=== PATIENT | female | born 1990 | race Caucasian/White ===

== ENCOUNTER 2020-09-03 09:53 | Outpatient (REF) | payer OTHER, SELFPAY | END 2020-09-03 09:54 | disposition home or self-care (01) | LOC: HO.LAB 09:53 | PROVIDERS: PCP Pediatrics; Visit Provider Internal Medicine | DX: Z20.828 Contact with and (suspected) exposure to other viral communicable diseases (principal) | CPT/HCPCS: 87635 ==

== ENCOUNTER 2022-09-30 17:25 | Inpatient (IN) | payer OTHER, SELFPAY ==
--- NOTE | ~2022-09-30 | CT_ITS ---
EXAMINATION: CT ABDOMEN AND PELVIS WITH CONTRAST CLINICAL INFORMATION: Right lower quadrant pain. COMPARISON: None TECHNIQUE: Multidetector volumetric images were obtained from the superior aspect of the liver through the pubic symphysis following administration 91 mL of Omnipaque 350 intravenous contrast. Sagittal and coronal reformatted images were obtained on the technologist's workstation. Oral contrast: No This CT examination was performed using dose optimization techniques as appropriate, variously including the following: *Automated exposure control *Adjustment of mA and/or kV according to patient size (this includes techniques or standardized protocols for targeted exams where dose is matched to indication/reason for exam; i.e. extremities or head) *Use of iterative reconstruction technique DLP: 713 mGy-cm FINDINGS: LUNG BASES: The visualized lung bases are unremarkable. LIVER, GALLBLADDER, AND BILIARY TREE: The liver is normal in size, shape, and attenuation. No focal hepatic lesion or biliary ductal dilatation is present. The gallbladder is unremarkable with no evidence of radiopaque gallstones, gallbladder wall thickening, or obvious pericholecystic inflammatory changes. PANCREAS: Unremarkable. SPLEEN: Unremarkable. ADRENAL GLANDS: Unremarkable. KIDNEYS AND URETERS: The kidneys are normal in size, shape, and attenuation. No hydronephrosis, hydroureter, or calculi seen. No perinephric stranding. BLADDER: Unremarkable. GASTROINTESTINAL TRACT: The appendix is dilated measuring up to 1 cm in diameter and demonstrates wall thickening, periappendiceal fat stranding and periappendiceal free fluid. No organized drainable collection or abscess. No pneumoperitoneum. The stomach and the small bowel are nondilated. No pericolonic inflammatory changes nor evidence of bowel obstruction. ABDOMINAL WALL: No significant hernia is appreciated. LYMPH NODES: Prominent right lower quadrant mesenteric lymph nodes, likely reactive. VASCULAR: Unremarkable. PELVIC VISCERA: Unremarkable. OSSEOUS STRUCTURES: No acute or aggressive appearing osseous abnormalities. Bilateral L5 pars defects are noted. CT/CT abdomen pelvis w IV con IMPRESSION: Dilated appendix with wall thickening and surrounding inflammatory changes most consistent with acute appendicitis.
[2022-09-30 17:38] VITALS: BP 158/92; PULSE 98; O2SAT 99
[2022-09-30 19:15] VITALS: BP 150/83; PULSE 94; RESP 18; TEMP 37.2; O2SAT 98; BMI 34.0
--- NOTE | 2022-09-30 19:20 | ED.ABDPAIN ---
HPI - Abdominal Pain General Chief Complaint: Abdominal Pain Stated Complaint: abd pain Time Seen by Provider: 09/30/22 21:04 Related Data Allergies Allergy/AdvReac Type Severity Reaction Status Date / Time amoxicillin Allergy Intermediate Rash Verified 09/30/22 19:19 Physical Exam ED Vital Signs: Vital Signs - 24 hr 09/30/22 19:15 09/30/22 20:53 09/30/22 21:24 Temperature 99.0 F 98.0 F 97.7 F Pulse Rate 94 85 87 Respiratory Rate 18 18 18 Blood Pressure 150/83 H 142/79 H 144/84 H Pulse Oximetry 98 100 98 Oxygen Delivery Method Room Air Room Air Room Air BMI result Body Mass Index 34.0 Course Reevaluation(s) Reevaluation #1: Right-sided abdominal pain since 10:00, with nausea and vomiting, unable to tolerate p.o. intake because of abdominal pain and vomiting, no fever or chills. Labs/UA/abdominal CT was ordered from triage. Time: 19:20
[2022-09-30 20:53] VITALS: BP 142/79; PULSE 85; RESP 18; TEMP 36.7; O2SAT 100
--- NOTE | 2022-09-30 21:07 | ED.ABDPAIN ---
HPI - Abdominal Pain General Chief Complaint: Abdominal Pain Stated Complaint: abd pain Time Seen by Provider: 09/30/22 21:04 Source: patient Mode of arrival: ambulatory Limitations: no limitations History of Present Illness HPI narrative: Patient no significant abdominal complaints in the past noticed sudden onset of pain a right-sided since 10:00 pain is diffuse in the right side both in the lower and upper quadrant with nausea and vomiting got worse when she was ambulating vomited several times never had similar pain in the past. Patient had a questionable blood clot in the lungs but was not given any medication except for 2 days of blood thinner at [facility] and discontinued likely not the PE. No fever no chills no urinary complaints no history of kidney stone or gallstone Related Data Allergies Allergy/AdvReac Type Severity Reaction Status Date / Time amoxicillin Allergy Intermediate Rash Verified 09/30/22 19:19 Review of Systems Review of Systems Yes all other systems are reviewed and are negative [facility] Social History Social History Advance Directives: No Advance Directives Information Provided: No Physical Exam ED Vital Signs: Vital Signs - 24 hr 09/30/22 19:15 09/30/22 20:53 09/30/22 21:24 Temperature 99.0 F 98.0 F 97.7 F Pulse Rate 94 85 87 Respiratory Rate 18 18 18 Blood Pressure 150/83 H 142/79 H 144/84 H Pulse Oximetry 98 100 98 Oxygen Delivery Method Room Air Room Air Room Air 09/30/22 21:59 09/30/22 22:56 Temperature 97.7 F Pulse Rate 94 Respiratory Rate 16 16 Blood Pressure 134/54 L Pulse Oximetry 98 Oxygen Delivery Method Room Air BMI result Body Mass Index 34.0 Appearance: Alert. Oriented X3. Moderate distress. Eyes: No pallor/ icterus ENT: Pharynx normal. Oral Mucosa moist Neck: Normal inspection. Neck supple. CVS: Normal heart rate and rhythm. Pulses normal. Respiratory: No respiratory distress. Equal air entry bilateral, no wheezing/rales/rhonchi Abdomen: Soft , +++ tenderness right lower quadrant, guarding ++with no rebound tenderness, Bowel sounds are present, no mass palpable, no CVA tenderness Skin: Skin warm and dry. Normal skin color. Normal skin turgor. Extremities: No lower extremity edema. No calf tenderness Neuro: Oriented X 3. No motor deficit. Medications Administered Generic Name Dose Route Start Last Admin Trade Name Marge PRN Reason Stop Dose Admin Levofloxacin 500 mg in 100 mls @ 100 mls/hr 09/30/22 22:55 09/30/22 23:31 Levaquin IV 09/30/22 23:54 100 mls/hr ONCE ONE Administration Discontinued Medications Generic Name Dose Route Start Last Admin Trade Name Marge PRN Reason Stop Dose Admin Sodium Chloride 1,000 mls @ 999 mls/hr 09/30/22 21:17 09/30/22 22:00 Ns IV 09/30/22 22:17 999 mls/hr .Q1H1M ONE Administration Iohexol 100 ml 09/30/22 22:26 09/30/22 22:27 Iohexol 350 Mg/Ml 100 Ml Infus..Btl IV 09/30/22 22:27 91 ml ONCE ONE Administration Morphine Sulfate 4 mg 09/30/22 21:17 09/30/22 21:59 Morphine Sulfate 4 Mg/Ml Cartridge IVPUSH 09/30/22 21:18 4 mg ONCE ONE Administration Protocol Ondansetron HCl 4 mg 09/30/22 21:17 09/30/22 22:00 Ondansetron Hcl 4 Mg/2 Ml Vial IVPUSH 09/30/22 21:18 4 mg ONCE ONE Administration MDM - Abdominal Pain MDM Narrative Medical decision making narrative: Patient with right sided pain more in RLQ possibly appendicitis possible she might have a gallstone also Patient CT scan shows 1 cm dilated appendix with surrounding inflammation. Will give antibiotic Levaquin and Flagyl case discussed with Dr. Iverson surgeon will do the surgery early in the morning for acute appendicitis Lab Data Attestation: I reviewed the patient's lab results. Result diagrams: 09/30/22 21:30 09/30/22 21:30 Labs: Lab Results 09/30/22 09/30/22 09/30/22 Range/Units 21:30 21:30 21:30 WBC 17.0 H (4.8-10.8) X10*3/uL RBC 4.47 (4.20-5.50) X10*6/uL Hgb 13.6 (12.0-16.0) g/dl Hct 40.7 (37.0-47.0) % MCV 91.1 (80.0-98.0) fL MCH 30.4 (27.0-33.0) pg MCHC 33.4 (31.0-35.0) g/dl RDW 12.6 (11.0-16.0) % Plt Count 301 (160-400) X10*3/uL MPV 9.8 (9.4-12.3) fL Immature Gran % (Auto) 0.4 (0.0-0.4) % Neut % (Auto) 88.8 H (45-73) % Lymph % (Auto) 6.4 L (20-40) % [place] % (Auto) 4.2 (2-11) % Eos % (Auto) 0.0 (0-4) % Baso % (Auto) 0.2 (0-2) % Lymph # (Auto) 1.1 L (1.2-4.9) X10*3/uL [place] # (Auto) 0.7 (0.1-1.2) X10*3/uL Eos # (Auto) 0.0 (0.0-0.4) X10*3/uL Baso # (Auto) 0.0 (0.0-0.2) X10*3/uL Abs Immat Gran (auto) 0.06 H (0.00-0.03) X10*3/uL Absolute Neuts (auto) 15.1 H (2.0-8.3) x10*3/uL Absolute Nucleated RBC 0.000 (0.0-0.012) X10*3/uL Nucleated RBC % (auto) 0.0 (0.0-0.2) /100WBC Sodium 139 (135-145) mmol/L Potassium 5.0 (3.3-5.1) mmol/L Chloride 104 (96-108) mmol/L Carbon Dioxide 22 (22-29) mmol/L Anion Gap 18 (12-20) BUN 11 (9-16) mg/dL Creatinine 0.69 (0.5-1.4) mg/dL Estim Creat Clear Calc 111.2 Estimated GFR > 60 Random Glucose 121 H (60-115) mg/dL Calcium 9.4 (8.4-10.2) mg/dL Total Bilirubin 0.4 (0.0-1.0) mg/dL Direct Bilirubin 0.2 (0.0-0.5) mg/dL AST 38 H (5-31) U/L ALT 35 H (0-31) U/L Alkaline Phosphatase 61 (39-117) U/L Total Protein 7.5 (6.5-8.0) g/dL Albumin 4.6 (3.5-5.0) g/dL Lipase 11 (8-78) U/L Urine Color Yellow Urine Appearance Cloudy Urine pH 7.5 (5.0-9.0) Ur Specific [place] 1.025 (1.005-1.025) Urine Protein Trace (Neg-Trace) mg/dL Urine Glucose (UA) Negative (Negative) mg/dL Urine Ketones 40 (Negative) mg/dL Urine Blood Negative (Negative) Urine Nitrite Negative (Negative) Ur Leukocyte Esterase Negative (Negative) Urine Test (NEGATIVE) COVID-19 (LUCERO) (Negative) COVID-19 Clin Com 09/30/22 09/30/22 Range/Units 21:30 23:05 WBC (4.8-10.8) X10*3/uL RBC (4.20-5.50) X10*6/uL Hgb (12.0-16.0) g/dl Hct (37.0-47.0) % MCV (80.0-98.0) fL MCH (27.0-33.0) pg MCHC (31.0-35.0) g/dl RDW (11.0-16.0) % Plt Count (160-400) X10*3/uL MPV (9.4-12.3) fL Immature Gran % (Auto) (0.0-0.4) % Neut % (Auto) (45-73) % Lymph % (Auto) (20-40) % [place] % (Auto) (2-11) % Eos % (Auto) (0-4) % Baso % (Auto) (0-2) % Lymph # (Auto) (1.2-4.9) X10*3/uL [place] # (Auto) (0.1-1.2) X10*3/uL Eos # (Auto) (0.0-0.4) X10*3/uL Baso # (Auto) (0.0-0.2) X10*3/uL Abs Immat Gran (auto) (0.00-0.03) X10*3/uL Absolute Neuts (auto) (2.0-8.3) x10*3/uL Absolute Nucleated RBC (0.0-0.012) X10*3/uL Nucleated RBC % (auto) (0.0-0.2) /100WBC Sodium (135-145) mmol/L Potassium (3.3-5.1) mmol/L Chloride (96-108) mmol/L Carbon Dioxide (22-29) mmol/L Anion Gap (12-20) BUN (9-16) mg/dL Creatinine (0.5-1.4) mg/dL Estim Creat Clear Calc Estimated GFR Random Glucose (60-115) mg/dL Calcium (8.4-10.2) mg/dL Total Bilirubin (0.0-1.0) mg/dL Direct Bilirubin (0.0-0.5) mg/dL AST (5-31) U/L ALT (0-31) U/L Alkaline Phosphatase (39-117) U/L Total Protein (6.5-8.0) g/dL Albumin (3.5-5.0) g/dL Lipase (8-78) U/L Urine Color Urine Appearance Urine pH (5.0-9.0) Ur Specific [place] (1.005-1.025) Urine Protein (Neg-Trace) mg/dL Urine Glucose (UA) (Negative) mg/dL Urine Ketones (Negative) mg/dL Urine Blood (Negative) Urine Nitrite (Negative) Ur Leukocyte Esterase (Negative) Urine Test NEGATIVE (NEGATIVE) COVID-19 (LUCERO) Negative (Negative) COVID-19 Clin Com See Note Discharge Plan Discharge Clinical Impression: Acute appendicitis Patient Disposition: Admitted As Inpatient
[2022-09-30 21:24] VITALS: BP 144/84; PULSE 87; RESP 18; TEMP 36.5; O2SAT 98
--- NOTE | 2022-09-30 21:33 | PC.NURSE ---
THIS PCT ASSUMED CARE OF PT AT THIS TIME ,VITALS SIGN TAKEN ,BLOOD DRAWN AND URINE SAMPLE COLLECT AND SEND TO THE LAB,PT AT BEDSIDE ,CALL TORRES IN PLACE .
[2022-09-30 21:35] LABS: MANUAL DIFF FLAG NO
[2022-09-30 21:37] LABS: Basophils Percent Auto 0.2 % (0-2); Hematocrit 40.7 % (37.0-47.0); Hemoglobin 13.6 g/dl (12.0-16.0); Imm Gran Abs Auto 0.06 X10*3/uL (0.00-0.03); Imm Gran Pct Auto 0.4 % (0.0-0.4); Lymphocytes Absolute Auto 1.1 X10*3/uL (1.2-4.9); Lymphocytes Percent Auto 6.4 % (20-40); Mean Corpuscular HGB Conc 33.4 g/dl (31.0-35.0); Mean Corpuscular Hemoglobin 30.4 pg (27.0-33.0); Mean Corpuscular Volume 91.1 fL (80.0-98.0); Mean Platelet Volume 9.8 fL (9.4-12.3); Monocytes Absolute Auto 0.7 X10*3/uL (0.1-1.2); Monocytes Percent Auto 4.2 % (2-11); Neutrophils Absolute Auto 15.1 x10*3/uL (2.0-8.3); Neutrophils Percent Auto 88.8 % (45-73); Platelet Count 301 X10*3/uL (160-400); Red Blood Count 4.47 X10*6/uL (4.20-5.50); Red Cell Distribution Width 12.6 % (11.0-16.0)
[2022-09-30 21:39] LABS: Appearance Urine Cloudy; Color Urine Yellow; Glucose Urine UA Negative (Negative); Leukocyte Esterase Urine Negative (Negative); Nitrite Urine Negative (Negative); PH 7.5 (5.0-9.0); Specific Gravity - Urine 1.025 (1.005-1.025); Urine Blood Negative (Negative); Urine Ketones 40 mg/dL (Negative); Urine Protein Trace mg/dL (Neg-Trace)
[2022-09-30 21:42] LABS: UPreg QC Valid YES; Urine Pregnancy NEGATIVE (NEGATIVE)
[2022-09-30 21:57] LABS: Alanine Aminotransferase 35 U/L (0-31); Albumin Level 4.6 g/dL (3.5-5.0); Alkaline Phosphatase 61 U/L (39-117); Anion Gap 18 (12-20); Aspartate Amino Transferase 38 U/L (5-31); Bilirubin Direct 0.2 mg/dL (0.0-0.5); Bilirubin Total 0.4 mg/dL (0.0-1.0); Blood Urea Nitrogen 11 mg/dL (9-16); Calcium 9.4 mg/dL (8.4-10.2); Carbon Dioxide 22 mmol/L (22-29); Chloride 104 mmol/L (96-108); Creatinine Clr Calc Pharmacy 111.2; Estimated Glomerular Filt Rate > 60; Glucose Random 121 mg/dL (60-115); Lipase 11 U/L (8-78); Sodium 139 mmol/L (135-145); Total Protein 7.5 g/dL (6.5-8.0)
[2022-09-30 21:59] VITALS: RESP 16
[2022-09-30] MEDS: Morphine Sulfate 4 MG/ML CARTRIDGE IVPUSH (21:59)
[2022-09-30] MEDS: ondansetron HCL 4 MG/2 ML VIAL IVPUSH (22:00)
[2022-09-30] MEDS: 0.9 % Sodium Chloride 1,000 ML 999 ML IV (22:00)
[2022-09-30] MEDS: iohexoL 350 MG/ML 100 ML INFUS..BTL IV (22:27)
[2022-09-30 22:56] VITALS: BP 134/54; PULSE 94; RESP 16; TEMP 36.5; O2SAT 98
[2022-09-30 23:28] LABS: COVID-19 Test Negative (Negative)
[2022-09-30] MEDS: levoFLOXacin/D5W 500 MG/100 ML PIGGYBACK 100 MG IV (23:31)
[2022-10-01] VITALS (16 sets, daily range): BP systolic 119–165; BP diastolic 44–83; PULSE 72–90; RESP 12–18; TEMP 36.2–37.6; O2SAT 95–100
[2022-10-01] MEDS: Lactated Ringers 1,000 ML 100 ML IVCONT ×3 (00:44→17:05)
[2022-10-01] MEDS: metroNIDAZOLE/NS 500 MG/100 ML PIGGYBACK 100 MG IV ×2 (00:44→08:12)
[2022-10-01] MEDS: 0.9 % Sodium Chloride Flush 3 ML SYRINGE IVFLUSH ×2 (00:45→17:06)
[2022-10-01] MEDS: Morphine Sulfate 4 MG/ML CARTRIDGE 3 MG IVPUSH ×5 (01:07→20:39)
--- NOTE | 2022-10-01 07:46 | PHA.MEDREC ---
Pharmacy Consult ? Medication Reconciliation Pharmacy has completed the medication reconciliation. Patient only take melatonin as needed. Mayelin Cutler, AgathaD
--- NOTE | 2022-10-01 07:56 | PM.HPGS ---
History of Present Illness History of Present Illness Date of Service: 10/03/22 Chief complaint: Appendicitis Narrative: Madison Balbuena is a 32 year old female who came to the ER last night because of abdominal pain. She says this started around 10:00 o'clock in the morning yesterday. She had gone to the gym without any issues earlier that morning and started to have diffuse abdominal pain thereafter. She says this persisted throughout the day. She had multiple episodes of vomiting. She denies any diarrhea. She says she has had no similar episodes in the past. She says her pain this morning is similar in intensity and is not worse nor better. She says that the pain medication she has been receiving have helped a lot. She has had no vomiting overnight. She denies any fever or chills. Review of Systems Constitutional: Constitutional: Denies chills and Denies fever(s) Cardiovascular: Cardiovascular: Denies chest pain, Denies dyspnea and Denies dyspnea on exertion Respiratory: Respiratory: Denies cough, Denies dyspnea and Denies dyspnea on exertion Gastrointestinal: Gastrointestinal: Denies hematochezia and Denies change in bowel habits Genitourinary: Genitourinary: Denies hematuria Musculoskeletal: Musculoskeletal: Denies back pain and Denies limited range of motion Neurologic: Denies focal weakness and Denies convulsions Psychiatric: Psychiatric: Denies depression and Denies mood swings PMFSH Past Medical History Medical History History of COVID-19 Surgical History Surgical History (Updated 10/02/22 @ 07:49 by Christy England PA-C) History of esophagogastroduodenoscopy (EGD) Social History Social History Household Members: None Housing: Apartment Do you presently have visiting nurse or other home services: No Alcohol intake: former Patient Tobacco Use Status: Never used Tobacco Substance Use Type: Marijuana Advance Directives Date on File: 10/01/22 service: No Current occupational status: employed Meds Allergies Allergy/AdvReac Type Severity Reaction Status Date / Time amoxicillin Allergy Intermediate Rash Verified 09/30/22 19:19 Active Medications: Current Medications Lactated Ringer's (Lr) 1,000 mls @ 100 mls/hr IVCONT .Q10H ARLINE Last Admin: 10/01/22 00:44 Dose: 100 mls/hr Levofloxacin (Levaquin) 500 mg in 100 mls @ 100 mls/hr IV Q24H ARLINE Metronidazole (Flagyl) 500 mg in 100 mls @ 100 mls/hr IV Q8H ARLINE Morphine Sulfate (Morphine Sulfate 4 Mg/Ml Cartridge) 3 mg IVPUSH Q3H PRN; Protocol PRN Reason: pain, severe Last Admin: 10/01/22 05:18 Dose: 3 mg Ondansetron HCl (Ondansetron Hcl 4 Mg/2 Ml Vial) 4 mg IVPUSH Q6H PRN PRN Reason: nausea Sodium Chloride (0.9 % Sodium Chloride Flush 3 Ml Syringe) 3 ml IVFLUSH QSHIFT ARLINE Last Admin: 10/01/22 00:45 Dose: 3 ml Home Medications Medication Instructions Recorded Confirmed Last Taken Type melatonin 3 mg tablet 3 mg PO BEDTIME PRN Insomnia 10/01/22 10/01/22 Unknown History Physical Exam Vital Signs: Vital Signs: Last Vital Signs Temp 99.3 F 10/01/22 07:16 Pulse 78 10/01/22 07:16 Resp 14 10/01/22 07:16 BP 119/44 L 10/01/22 07:16 Pulse Ox 95 10/01/22 07:16 O2 Del Method 10/01/22 07:16 BMI result Body Mass Index 34.0 Const: General: comfortable and no acute distress Orientation/consciousness: patient oriented x3 Neck: Neck: Yes no lymphadenopathy Resp: Auscultation: clear to auscultation bilaterally Cardio: Rhythm: regular rhythm GI: Other: Tender on the right lower quadrant, no rebound Palpation (GI): Soft to palpation, Tenderness to palpation present (GI) and no guarding Neuro: General: patient oriented x3 Results Results Labs: Short CBC 09/30/22 Range/Units 21:30 WBC 17.0 H (4.8-10.8) X10*3/uL Hgb 13.6 (12.0-16.0) g/dl Hct 40.7 (37.0-47.0) % Plt Count 301 (160-400) X10*3/uL BMP 09/30/22 21:30 Sodium 139 Potassium 5.0 Chloride 104 Carbon Dioxide 22 BUN 11 Creatinine 0.69 Calcium 9.4 Liver Function 09/30/22 Range/Units 21:30 Total Bilirubin 0.4 (0.0-1.0) mg/dL Direct Bilirubin 0.2 (0.0-0.5) mg/dL AST 38 H (5-31) U/L ALT 35 H (0-31) U/L Alkaline Phosphatase 61 (39-117) U/L Albumin 4.6 (3.5-5.0) g/dL Urine 09/30/22 09/30/22 Range/Units 21:30 21:30 Urine Color Yellow Urine Appearance Cloudy Urine pH 7.5 (5.0-9.0) Ur Specific [place] 1.025 (1.005-1.025) Urine Protein Trace (Neg-Trace) mg/dL Urine Glucose (UA) Negative (Negative) mg/dL Urine Test NEGATIVE (NEGATIVE) Additional studies: Laboratory Results WBC 17.0 X10*3/uL (4.8-10.8) H 09/30/22 21:30 RBC 4.47 X10*6/uL (4.20-5.50) 09/30/22 21:30 Hgb 13.6 g/dl (12.0-16.0) 09/30/22 21: Hct 40.7 % (37.0-47.0) 09/30/22 21: MCV 91.1 fL (80.0-98.0) 09/30/22 21:30 MCH 30.4 pg (27.0-33.0) 09/30/22: MCHC 33.4 g/dl (31.0-35.0) 09/30/22 21: RDW 12.6 % (11.0-16.0) 09/30/22 21: Plt Count 301 X10*3/uL (160-400) 09/30/22 21: MPV 9.8 fL (9.4-12.3) 09/30/22: Immature Gran % (Auto) 0.4 % (0.0-0.4) 09/30/22 21: Neut % (Auto) 88.8 % (45-73) H 09/30/22 21: Lymph % (Auto) 6.4 % (20-40) L 09/30/22 21:30 [place] % (Auto) 4.2 % (2-11) 09/30/22 21:30 Eos % (Auto) 0.0 % (0-4) 09/30/22 21:30 Baso % (Auto) 0.2 % (0-2) 09/30/22 21:30 Lymph # (Auto) 1.1 X10*3/uL (1.2-4.9) L 09/30/22 21:30 [place] # (Auto) 0.7 X10*3/uL (0.1-1.2) 09/30/22 21: Eos # (Auto) 0.0 X10*3/uL (0.0-0.4) 09/30/22 21: Baso # (Auto) 0.0 X10*3/uL (0.0-0.2) 09/30/22 21:30 Abs Immat Gran (auto) 0.06 X10*3/uL (0.00-0.03) H 09/30/22 21:30 Absolute Neuts (auto) 15.1 x10*3/uL (2.0-8.3) H 09/30/22 21: Absolute Nucleated RBC 0.000 X10*3/uL (0.0-0.012) 09/30/22: Nucleated RBC % (auto) 0.0 /100WBC (0.0-0.2) 09/30/22 21:30 Sodium 139 mmol/L (135-145) 09/30/22 21: Potassium 5.0 mmol/L (3.3-5.1) 09/30/22: Chloride 104 mmol/L (96-108) 09/30/22 21:30 Carbon Dioxide 22 mmol/L (22-29) 09/30/22 21:30 Anion Gap 18 (12-20) 09/30/22 21:30 BUN 11 mg/dL (9-16) 09/30/22 21:30 Creatinine 0.69 mg/dL (0.5-1.4) 09/30/22 21:30 Estim Creat Clear Calc 111.2 09/30/22 21:30 Estimated GFR > 60 09/30/22 21:30 Random Glucose 121 mg/dL (60-115) H 09/30/22 21: Calcium 9.4 mg/dL (8.4-10.2) 09/30/22 21: Total Bilirubin 0.4 mg/dL (0.0-1.0) 09/30/22 21: Direct Bilirubin 0.2 mg/dL (0.0-0.5) 09/30/22 21: AST 38 U/L (5-31) H 09/30/22: ALT 35 U/L (0-31) H 09/30/22 21: Alkaline Phosphatase 61 U/L (39-117) 09/30/22 21: Total Protein 7.5 g/dL (6.5-8.0) 09/30/22: Albumin 4.6 g/dL (3.5-5.0) 09/30/22 21: Lipase 11 U/L (8-78) 09/30/22 21: Urine Color Yellow 09/30/22: Urine Appearance Cloudy 09/30/22: Urine pH 7.5 (5.0-9.0) 09/30/22 21: Ur Specific [place] 1.025 (1.005-1.025) 09/30/22: Urine Protein Trace mg/dL (Neg-Trace) 09/30/22: Urine Glucose (UA) Negative mg/dL (Negative) 09/30/22 21: Urine Ketones 40 mg/dL (Negative) 09/30/22 21: Urine Blood Negative (Negative) 09/30/22: Urine Nitrite Negative (Negative) 09/30/22: Ur Leukocyte Esterase Negative (Negative) 09/30/22 21:30 Urine Test NEGATIVE (NEGATIVE) 09/30/22 21:30 COVID-19 (LUCERO) Negative (Negative) 09/30/22 23:05 COVID-19 Clin Com See Note 09/30/22 23:05 Impressions Abdomen/Pelvis CT 09/30/22 22:29 IMPRESSION: Dilated appendix with wall thickening and surrounding inflammatory changes most consistent with acute appendicitis. Assessment and Plan (1) Acute appendicitis: Status: Acute She has abdominal pain with direct tenderness on the right lower quadrant. I have reviewed her CAT scan and this shows a dilated appendix with periappendiceal inflammatory changes consistent with acute appendicitis. I had a long discussion with her about the technique of laparoscopic appendectomy and possible open appendectomy. I reviewed with her the risks including but not limited to bleeding, infections, injury to other organs including bowel and the urinary tract, pneumonia, blood clots, staple line leak, as well as the benefits and alternatives. She understands the option of continuing with nonoperative treatment with IV antibiotics. She wants to proceed with appendectomy. She will therefore be placed on the add on schedule in the OR. Her significant other was with her during the entire discussion. They are both comfortable with the plan. I also discussed with them what to expect postoperatively with recovery. Quality Stroke Does the patient have a stroke diagnosis?: No VTE Prior VTE?: No VTE Risk Level:: Medical - low VTE Device Contraindication: N/A - Device Ordered VTE Drug Contraindication: Treatment Not Indicated Procedures Date of Service Date of Service: 10/01/22
--- NOTE | 2022-10-01 10:12 | MHC.CM.PN ---
EMR REVIEED, PT ADMITTED W/APPENDICITIS AND PLAN FOR LAP APPY AT 11:30AM TODAY, CM MET W/PT WHO IS A&OX4, PT REPORTS SHE LIVES ALONE, IS INDEP W/ALL CARE, DENIES USE OF DME/SERVICES, PT DENIES RECEIVING COVID VACCINE, HAS NEW PCP KADI DOBBINS AT [facility] HOWEVER HER FIRST APPT IS NOT UNTIL NOVEMBER 2022. PT EDUCATED ON AND HAS COMPLETED A HCP W/CM NAMING HER COUSIN ANGEL RASMUSSEN [phone], PT PROVIDED W/ORIGINAL AND TWO COPIES. ANTIC D/C HOME SELF CARE BY TOMORROW 10/02/22, PT WILL CALL A FRIEND/[facility] FOR TRANSPORT
--- NOTE | 2022-10-01 13:11 | P.CONAN_ITS ---
HPI - Anesthesia Eval Consult details Narrative: 32 yo female patient for laparoscopic appendectomy PMFSH Active Problems Active Problems: All Active Problems (Updated 10/01/22 @ 12:22 by Anahy Randall RN) Acute appendicitis (Acute) Increased BMI Past Medical History Medical History History of COVID-19 Family History Family history of problems with anesthesia: No Surgical History Surgical History (Updated 10/01/22 @ 13:49 by Farida Monae MD) History of esophagogastroduodenoscopy (EGD) History of Problems with Anesthesia: No Social History Social History Alcohol intake: former Patient Tobacco Use Status: Never used Tobacco Smoked in Last 30 Days: No Substance Use Type: Marijuana Substance Use Frequency: Daily Substance Use Frequency Other:: 1 Last Used Substance: Days (ago) Any prior treatment program specific to substance use: No Are you DNR?: No Advance Directives: Yes Advance Directives on File: Yes Advance Directives Date on File: 10/01/22 Patient : No service: No Current occupational status: employed Meds Allergies Allergy/AdvReac Type Severity Reaction Status Date / Time amoxicillin Allergy Intermediate Rash Verified 09/30/22 19:19 Active Medications: Current Medications Lactated Ringer's (Lr) 1,000 mls @ 100 mls/hr IVCONT .Q10H [facility] Last Admin: 10/01/22 11:18 Dose: 100 mls/hr Levofloxacin (Levaquin) 500 mg in 100 mls @ 100 mls/hr IV Q24H [facility] Metronidazole (Flagyl) 500 mg in 100 mls @ 100 mls/hr IV Q8H [facility] Last Infusion: 10/01/22 09:24 Dose: Infused Morphine Sulfate (Morphine Sulfate 4 Mg/Ml Cartridge) 3 mg IVPUSH Q3H PRN; Protocol PRN Reason: pain, severe Last Admin: 10/01/22 08:14 Dose: 3 mg Ondansetron HCl (Ondansetron Hcl 4 Mg/2 Ml Vial) 4 mg IVPUSH Q6H PRN PRN Reason: nausea Sodium Chloride (0.9 % Sodium Chloride Flush 3 Ml Syringe) 3 ml IVFLUSH QSHIFT [facility] Last Admin: 10/01/22 08:04 Dose: Not Given Home Medications Medication Instructions Recorded Confirmed Last Taken Type melatonin 3 mg tablet 3 mg PO BEDTIME PRN Insomnia 10/01/22 10/01/22 Unknown His tory Exam Exam Date and Time: October 01, 2022 1311 Height,Weight and Vital Signs: Height 5 ft 1 in Weight 81.647 kg Last Vital Signs Temp 97.6 F 10/01/22 12:13 Pulse 84 10/01/22 12:13 Resp 15 10/01/22 12:13 BP 135/83 10/01/22 12:13 Pulse Ox 98 10/01/22 12:13 O2 Del Method 10/01/22 12:13 Pertinent Lab Results Pertinent Lab Results: Laboratory Tests 09/30/22 09/30/22 09/30/22 21:30 21:30 21:30 WBC 17.0 H RBC 4.47 Hgb 13.6 Hct 40.7 MCV 91.1 MCH 30.4 MCHC 33.4 RDW 12.6 Plt Count 301 MPV 9.8 Immature Gran % (Auto) 0.4 Neut % (Auto) 88.8 H Lymph % (Auto) 6.4 L Forrest % (Auto) 4.2 Eos % (Auto) 0.0 Baso % (Auto) 0.2 Lymph # (Auto) 1.1 L Forrest # (Auto) 0.7 Eos # (Auto) 0.0 Baso # (Auto) 0.0 Abs Immat Gran (auto) 0.06 H Absolute Neuts (auto) 15.1 H Absolute Nucleated RBC 0.000 Nucleated RBC % (auto) 0.0 Sodium 139 Potassium 5.0 Chloride 104 Carbon Dioxide 22 Anion Gap 18 BUN 11 Creatinine 0.69 Estim Creat Clear Calc 111.2 Estimated GFR > 60 Random Glucose 121 H Calcium 9.4 Total Bilirubin 0.4 Direct Bilirubin 0.2 AST 38 H ALT 35 H Alkaline Phosphatase 61 Total Protein 7.5 Albumin 4.6 Lipase 11 Urine Color Yellow Urine Appearance Cloudy Urine pH 7.5 Ur Specific [place] 1.025 Urine Protein Trace Urine Glucose (UA) Negative Urine Ketones 40 Urine Blood Negative Urine Nitrite Negative Ur Leukocyte Esterase Negative Urine Test COVID-19 ([facility]) COVID-19 Clin Com 09/30/22 09/30/22 21:30 23:05 WBC RBC Hgb Hct MCV MCH MCHC RDW Plt Count MPV Immature Gran % (Auto) Neut % (Auto) Lymph % (Auto) Forrest % (Auto) Eos % (Auto) Baso % (Auto) Lymph # (Auto) Forrest # (Auto) Eos # (Auto) Baso # (Auto) Abs Immat Gran (auto) Absolute Neuts (auto) Absolute Nucleated RBC Nucleated RBC % (auto) Sodium Potassium Chloride Carbon Dioxide Anion Gap BUN Creatinine Estim Creat Clear Calc Estimated GFR Random Glucose Calcium Total Bilirubin Direct Bilirubin AST ALT Alkaline Phosphatase Total Protein Albumin Lipase Urine Color Urine Appearance Urine pH Ur Specific [place] Urine Protein Urine Glucose (UA) Urine Ketones Urine Blood Urine Nitrite Ur Leukocyte Esterase Urine Test NEGATIVE COVID-19 ([facility]) Negative COVID-19 Clin Com See Note Airway Mallampati Class: III (Small mouth, slight overbite) TM Dist: >3cm Neck ROM: Full Loose/Missing/Broken Teeth: No (Denies loose, broken, missing teeth) Heart: RRR Lungs: CTAB Assessment and Plan Assessment Anesthesia Assessment: Anesthesia Plan Discussed and Chart Reviewed Final Anesthetic Review Family History of Problems with Anesthesia: No History of Problems with Anesthesia: No NPO: Yes ASA Class: II and Emergency Final Preanesthetic Review: No Changes in Pt Med Stat, Meds/Allgs Chart Reviewed, Consent Obtained/Reviewed and Anes Risks/Benef Reviewed Patient Risk: Intermediate Procedure Risk: Low Assessment/Block/Sedation in SS: Assess/Block/Sedation-SS Anesthetic Plan Anesthetic Plan: GA Disposition: Standard PACU
--- NOTE | 2022-10-01 14:16 | W.PM.OPN ---
Operative Note Operative Note Date of Service: 10/01/22 Narrative: Preop diagnosis: Acute appendicitis Postop diagnosis: Acute appendicitis Procedure: Laparoscopic appendectomy Surgeon: Channing Iverson MD elementary assistant principal: NICOLE England The patient is a 32-year-old female with pain, with a CAT scan showing acute appendicitis. She wanted to proceed with appendectomy. She understood the technique of laparoscopic appendectomy. She was aware of the risks, benefits, and alternatives She was brought to the operating room placed supine under general anesthesia via endotracheal tube. A surgical time-out was done. The abdomen is prepped and draped in the usual sterile fashion. The patient received Cefotan 2 g IV preoperatively. I made a short incision on the infraumbilical margin using blade 15 and this was carried down through the full-thickness of the skin subcutaneous fat down to the fascia. The fascia was incised. The peritoneum was entered. Through this incision a Shaheen port was introduced. Pneumoperitoneum was introduced to a pressure of 15 mmHg. From here on the rest of the procedure was done under vision with the laparoscope. We alternated between a 10 mm flat scope and a 5 mm flat scope during the procedure. With laparoscopic visualization, I proceeded to then pisitiona 5 mm port in the left lower quadrant via a small stab incision. Another 5 mm port was introduced at the suprapubic margin using a small stab incision. Graspers were placed through these working ports. The patient was placed in head-down and [id number] position to reflect the bowel loops away from the right lower quadrant. The cecum was seen. By following this I was able to identify the appendix which was positioned a little retrocecal and laterally towards the gutter. I therefore had to divide some of the lateral attachments of the cecum using the LigaSure to optimal exposure of the entire appendix. By doing so was able to see the entire appendix. This was indurated and edematous consistent with acute appendicitis. I applied a grasper at the distal 3rd to put this on stretch. By doing so was able to visualize the base of the appendix. I created a mesenteric window at the base using the [place] dissector. I then positioned an Endo-KWAN 30 mm stapler across the base. This was fired and the appendix was transected. I put the mesoappendix on stretch using the grasper on the appendix itself. I therefore was able to clearly visualize the entire mesoappendix. I used the LigaSure to serially divide the mesoappendix until the entire sac was completed sounds acted and this was sent as a specimen. This which revealed through an endobag I reinserted all ports and re-insufflated. Examined the area of dissection and the staple lines and these were all intact without any bleeding. I observed all 4 quadrants and there was no other pathology. There was no evidence of any bowel injury Once hemostasis was confirmed, I would desufflated through the ports and removed all ports under vision with the laparoscope. The umbilical port was removed last. The fascia of the umbilical incision was closed with [id number] Dexon 0 stitch. Skin closure was achieved on all incisions using Dexon 4-0 subcuticular sutures. All incisions were infiltrated with Marcaine 0.5% for postop analgesia. Steri-Strips and dressings were applied. The procedure was completed The patient tolerated procedure well. There were no immediate complications. Initial and final counts of sponges and instruments were correct. Estimated blood loss was less than 20 cc The patient was extubated without difficulty and transferred to the recovery room with stable vital signs.
[2022-10-01] MEDS: Acetaminophen 1,000 MG/100 ML PIGGYBACK 400 MG IV (14:28)
[2022-10-01] MEDS: fentaNYL citrate/PF 100 MCG/2 ML VIAL 25 MCG IVPUSH ×3 (14:42→15:00)
[2022-10-01] MEDS: oxyCODONE HCl Immed Release 5 MG TABLET PO (14:42)
--- NOTE | 2022-10-01 16:42 | PM.EVENT ---
Event Note Date of Service: 10/01/22 Event Note: she underwent laparoscopic appendectomy earlier, uneventful seen postop seems to have good pain control stable vital signs dressings dry abdomen soft continue postop pain management for discharge tomorrow morning family at bedside Braydon updated by phone
[2022-10-01] MEDS: Melatonin 3 MG TABLET PO (20:39)
--- NOTE | 2022-10-01 22:13 | PC.NURSE ---
BP low 90/50 pulse 90,held Sacubitril/Valsartan,Dr. Roy made aware
[2022-10-02] VITALS: BP 114/57; PULSE 78; RESP 15; RESP 18; TEMP 36; O2SAT 99
[2022-10-02 04:00] VITALS: BP 125/56; PULSE 88; RESP 14; TEMP 36.3; O2SAT 97
--- NOTE | 2022-10-02 07:45 | PM.PNGS ---
Subjective Subjective Date of Service: 10/02/22 <Christy England PA-C - Last Filed: 10/02/22 07:50> 10/02/22 <Channing Iverson MD - Last Filed: 10/02/22 09:07> Interval history: Feels well. Some mild abdominal soreness at incisions and RLQ but comfortable. Tolerating solid diet. OOB and ambulating. Wants to go home. <Christy England PA-C - Last Filed: 10/02/22 07:50> Physical Exam Vital Signs: Vital Signs: Last Vital Signs Temp 97.3 F 10/02/22 04:00 Pulse 88 10/02/22 04:00 Resp 14 10/02/22 04:00 BP 125/56 L 10/02/22 04:00 Pulse Ox 97 10/02/22 04:00 O2 Del Method 10/02/22 04:00 O2 Flow Rate 2 10/02/22 00:00 BMI result Body Mass Index 34.0 <Christy England PA-C - Last Filed: 10/02/22 07:50> Const: General: comfortable, no acute distress and alert <Christy England PA-C - Last Filed: 10/02/22 07:50> Orientation/consciousness: patient oriented x3 <Christy England PA-C - Last Filed: 10/02/22 07:50> Resp: Effort & Inspection: normal respiratory effort <Christy England PA-C - Last Filed: 10/02/22 07:50> GI: Inspection: No distended and Yes incision (dressings c/d/i) <Christy England PA-C - Last Filed: 10/02/22 07:50> Palpation (GI): Soft to palpation, Tenderness to palpation present (GI) (mild ) in the RLQ, no guarding and not rigid <ALVARADO Pinzon Last Filed: 10/02/22 07:50> Percussion: Yes normal to percussion <ALVARADO Pinzon Last Filed: 10/02/22 07:50> Skin: General skin exam: no rashes or lesions noted <ALVARADO Pinzon Last Filed: 10/02/22 07:50> Neuro: General: patient oriented x3 <Christy England PA-C - Last Filed: 10/02/22 07:50> Extrem: General: Yes no clubbing, cyanosis or edema <Christy England PA-C - Last Filed: 10/02/22 07:50> Objective Data Active Medications Acetaminophen (Acetaminophen 325 Mg Tablet) 650 mg PO Q6H PRN PRN Reason: Pain, Mild (Pain Scale 1-3) Lactated Ringer's (Lr) 1,000 mls @ 60 mls/hr IVCONT .[id number] [facility] Last Infusion: 10/02/22 03:16 Dose: 60 mls/hr Documented By: CHIO Ketorolac Tromethamine (Ketorolac Tromethamine 30 Mg/Ml Vial) 30 mg IVPUSH Q6H PRN PRN Reason: abdominal pain Melatonin (Melatonin 3 Mg Tablet) 3 mg PO BEDTIME PRN PRN Reason: Insomnia Last Admin: 10/01/22 20:39 Dose: 3 mg Documented By: ENRRIQUE Morphine Sulfate (Morphine Sulfate 4 Mg/Ml Cartridge) 3 mg IVPUSH Q3H PRN; Protocol PRN Reason: pain, severe Last Admin: 10/01/22 20:39 Dose: 3 mg Documented By: ENRRIQUE Ondansetron HCl (Ondansetron Hcl 4 Mg/2 Ml Vial) 4 mg IVPUSH Q6H PRN PRN Reason: nausea Oxycodone HCl (Oxycodone Hcl Immed Release 5 Mg Tablet) 10 mg PO Q6H PRN PRN Reason: Pain, Moderate (Pain Scale 4-6 Sodium Chloride (0.9 % Sodium Chloride Flush 3 Ml Syringe) 3 ml IVFLUSH QSHIFT [facility] Last Admin: 10/01/22 23:47 Dose: Not Given Documented By: CHIO Non-Admin Reason: IV Running <Christy England PA-C - Last Filed: 10/02/22 07:50> Labs CBC & Chem 7: : 09/30/22 21:30 09/30/22 21:30 <Christy England PA-C - Last Filed: 10/02/22 07:50> Procedures Date of Service Date of Service: 10/02/22 <Christy England PA-C - Last Filed: 10/02/22 07:50> Progress Note: A&P Assessment and plan (1) Acute appendicitis: Status: Acute <Christy England PA-C - Last Filed: 10/02/22 07:50> (2) S/P laparoscopic appendectomy: Status: Acute <Christy England PA-C - Last Filed: 10/02/22 07:50> Assessment and Plan: Doing well postop Tolerating diet Pain well controlled Abdomen soft Looks well Okay to DC home Seen and examined independently - agree with NICOLE England <Channing Iverson MD - Last Filed: 10/02/22 09:07> Assessment and Plan: 32 year old female admitted with acute appendicitis, uncomplicated now POD #1 s/p lap appy. Doing well post op. Tolerating diet and comfortable with PO analgesics. VSS. Abd exam benign with c/d/i dressings, appropriate post op tenderness. She feels ready for discharge. Stable for d/c to home today. <Christy England PA-C - Last Filed: 10/02/22 07:50> Time Spent With Patient Time: Total time spent is greater than 50% in coordination of care (as documented) at patient's floor/unit and/or counseling patient: <Christy England PA-C - Last Filed: 10/02/22 07:50> Quality Stroke Does the patient have a stroke diagnosis?: No <Christy England PA-C - Last Filed: 10/02/22 07:50> VTE Prior VTE?: No <Christy England PA-C - Last Filed: 10/02/22 07:50> VTE Risk Level:: Medical - low <Christy England PA-C - Last Filed: 10/02/22 07:50> VTE Device Contraindication: N/A - Device Ordered <Christy England PA-C - Last Filed: 10/02/22 07:50> VTE Drug Contraindication: Treatment Not Indicated <Christy England PA-C - Last Filed: 10/02/22 07:50>
[2022-10-02 07:50] VITALS: BP 126/67; PULSE 75; RESP 15; TEMP 36.2; O2SAT 100
--- NOTE | 2022-10-02 08:29 | HO.POSTANES ---
Post Anesthesia Evaluation Post Anesthesia Evaluation Vital Signs: Vital Signs Temp Pulse Resp BP Pulse Ox O2 Del Method 10/02/22 07:50 97.1 F 75 15 126/67 100 Room Air Anesthesia: General Endotracheal-GETA Mental Status: Awake Pain Control: Satisfactory Nausea/Vomiting: None Hydration: Adequate Anesthesia-Related Issues: No Anes. Related Issues
--- NOTE | 2022-10-02 09:18 | MHC.CM.PN ---
PT TO DC HOME TODAY WITH NO SERVICES PT TO ARRANGE TRANSPORT
[2022-10-02] MEDS: 0.9 % Sodium Chloride Flush 3 ML SYRINGE IVFLUSH (09:35)
[2022-10-02] MEDS: oxyCODONE HCl Immed Release 5 MG TABLET 10 MG PO (09:35)
--- NOTE | 2022-10-03 10:25 | PM.DS ---
DS: Providers Provider Date of Service: 10/02/22 Date of admission: 09/30/22 23:08 Primary care physician: Riley Iverson MD Attending physician on admission: Channing Iverson Attending physician on discharge: Channing Iverson DS: Diagnosis Discharge Diagnosis (1) Acute appendicitis: Status: Acute (2) S/P laparoscopic appendectomy: Status: Acute DS: Summary Hospital Course Hospital Course: BRIEF HPI: Madison Balbuena is a 32 year old female who came to the ER last night because of abdominal pain. She says this started around 10:00 o'clock in the morning yesterday. She had gone to the gym without any issues earlier that morning and started to have diffuse abdominal pain thereafter. She says this persisted throughout the day. She had multiple episodes of vomiting. She denies any diarrhea. She says she has had no similar episodes in the past. She says her pain this morning is similar in intensity and is not worse nor better. She says that the pain medication she has been receiving have helped a lot. She has had no vomiting overnight. She denies any fever or chills. Work up included a CBC which showed a leukocytosis of 17 and a CAT scan and this shows a dilated appendix with periappendiceal inflammatory changes consistent with acute appendicitis. HOSPITAL COURSE: She was admitted to the surgical service for further treatment of the acute appendicitis. Treatment options were discussed including IV abx and observation or proceeding with laparoscopic appendectomy possible open. She elected to proceed with surgery. She was added onto the OR schedule for that morning. On 10/01/22, a laparoscopic appendectomy was performed by Dr. Iverson without complication. The patient tolerated the procedure well and was admitted to the medical/surgical floor for observation. She had an uncomplicated recovery course. On POD #1, she felt well. She was comfortable with PO analgesics and tolerating a solid diet. Her vitals were stable and abdomen was benign with appropriate post op tenderness and clean dressings. She felt ready for discharge to home. She was discharged to home on 10/02/22 in stable condition. She is to follow up with Dr. Iverson in office in 2 weeks. Status at Discharge Functional status at discharge: independent ambulation Overall status at discharge: patient is progressing back to baseline Time Spent with Patient Time attestation: Total time spent providing and/or coordinating discharge services: Discharge coordination time: Less than 30 minutes Quality: Safe Use of Opioids Does Pt have an Active Cancer Diagnosis on the Problem List?: No Quality: Stroke Does the patient have a stroke diagnosis?: No Physical Exam Vital Signs: Vital Signs: Last Vital Signs Temp 97.1 F 10/02/22 07:50 Pulse 75 10/02/22 07:50 Resp 15 10/02/22 07:50 BP 126/67 10/02/22 07:50 Pulse Ox 100 10/02/22 07:50 O2 Del Method 10/02/22 07:50 O2 Flow Rate 2 10/02/22 00:00 BMI result Body Mass Index 34.0 Const: General: comfortable, no acute distress, well developed and alert Orientation/consciousness: patient oriented x3 Resp: Effort & Inspection: normal respiratory effort GI: Inspection: No distended and Yes incision (dressings c/d/i) Palpation (GI): Soft to palpation, Tenderness to palpation present (GI) (mild, incisional), no guarding and not rigid Percussion: Yes normal to percussion Skin: General skin exam: no rashes or lesions noted Neuro: General: patient oriented x3 and moves all extremities DS: Data Data Completed and Pending Completed studies during hospitalization [Text1]: 10/01/22 14:06 Surgical [PTH] Routine Vermiform appendix, appendectomy: Acute appendicitis and periappendicitis. Discharge Plan Discharge Anticipated Discharge Date/Time: 10/02/22 14:24 Patient Disposition: Home, Self-Care Discharge Diagnosis: s/p laparoscopic appendectomy Referrals: Channing Iverson MD [Physician] - 2 Weeks Physician,Unknown J [Physician] - 1 Week Discharge Medications: New oxycodone 5 mg tablet 5 mg PO Q4H PRN (Reason: pain (scale score 7-10)) Qty: 24 0RF Rx Instructions: Partial Fill upon patient request. ibuprofen 600 mg tablet 600 mg PO TID PRN (Reason: pain) Qty: 30 0RF Continued melatonin 3 mg Tablet 3 mg PO BEDTIME PRN (Reason: Insomnia) Discharge Orders: Discharge Order (Routine); Ordered 10/02/22 Ordered By: Christy England Diet: Advance to usual diet Activity on Discharge: No heavy lifting Stand Alone Forms: Patient Portal Discharge page Activity Restrictions/Additional Instructions: If the incision area is tender, you may apply an ice pack for short intervals (No more than 20 minutes on, followed by at least 20 minutes off). Do not apply heat. Do not use creams, lotions, or topical antibiotics unless instructed to do so by your surgeon. These can cause infection or allergic reaction. Ok to shower 48 hours after your surgery. Remove bandaids in 2 days and replace. You have steri strips (small white cloth strips) covering your incision- these will fall off ~1 week. Follow up in office with Dr. Iverson in 2 weeks. ([phone]) No heavy lifting (>10-20lbs) or strenuous activity! Call Your Doctor If: -Your temperature exceeds 101.5? F -You experience excessive pain or swelling -You have an unexpected reaction to medication -You have excessive bleeding -You experience continued vomiting/nausea -Your incision begins to separate -Your incision shows signs of infection such as increased redness, swelling, excessive pain, drainage (light blood or clear fluid is normal) or heat Care Plan Goals: Return to baseline health and gradual return to activity following recovery period. Health Concerns: acute appendicitis Plan of Treatment: s/p laparoscopic appendectomy Pain control F/u in office with Dr. Iverson in 2 weeks Assessment: Doing well post op Discharge Date/Time: 10/02/22 10:24
== END 2022-10-02 10:24 | disposition home or self-care (01) | DRG 234 ==
LOC: HO.ED 23:06 → HO.EDOVER 23:36 → HO.S3 10-01 15:23
PROVIDERS: Emergency Medicine; Admitting Provider Surgery; Emergency Provider Internal Medicine; PCP Family Medicine; Visit Provider Surgery
PROC: 0DTJ4ZZ Resection of Appendix, Percutaneous Endoscopic Approach (ICD-10-PCS; CPT 44970; principal; 2022-10-01 12:30)
DX: K35.80 Unspecified acute appendicitis (principal); Z20.822 Contact with and (suspected) exposure to COVID-19; Z86.16 Personal history of COVID-19; Z88.0 Allergy status to penicillin
CPT/HCPCS: 44970; 36415; 74177; 80048; 80076; 81003; 81025; 83690; 85025; 87635; 88304; 99284; J0131; J1100; J1956; J2250; J2270; J2405; J2795; J3010; Q9967